=== PATIENT | female | born 1975 | race Caucasian/White ===

== ENCOUNTER 2017-08-29 12:40 | Emergency (ER) | payer BC ==
[2017-08-29] MEDS ORDERED: ASPIRIN 81 MG TABLET, CHEWABLE PO ONE (12:59)
--- NOTE | 2017-08-29 13:01 | ER Document Report ---
ED Medical Screen (RME) - General Chief Complaint: Chest Pain Stated Complaint: CHEST PAIN, ARM PAIN Time Seen by Provider: 08/29/17 12:58 Mode of Arrival: Ambulatory Information source: Patient TRAVEL OUTSIDE OF THE [place] IN LAST 30 DAYS: No - HPI Patient complains to provider of: cp Onset: This morning - pt. with onset of SSCP radiating to L arm easrliere this am. Has not taken ASA. - Related Data Allergies/Adverse Reactions: codeine Allergy (Verified 08/29/17 12:57) Past Medical History Renal/ Medical History: Denies: Hx Peritoneal Dialysis Physical Exam - Vital signs Vitals: Temp Pulse Resp BP Pulse Ox 97.8 F 98 18 116/81 98 08/29/17 12:47 08/29/17 12:47 08/29/17 12:47 08/29/17 12:47 08/29/17 12:47 Course - Vital Signs Vital signs: Temp Pulse Resp BP Pulse Ox 97.8 F 98 18 116/81 98 08/29/17 12:47 08/29/17 12:47 08/29/17 12:47 08/29/17 12:47 08/29/17 12:47
[2017-08-29] MEDS ORDERED: ONDANSETRON 4 MG TAB.RAPDIS PO ONE (13:17)
--- NOTE | 2017-08-29 14:01 | RADIOLOGY REPORT (SQ) ---
EXAM DESCRIPTION: CHEST PA/LAT COMPLETED DATE/TIME: 08/29/2017 1:54 pm REASON FOR STUDY: cp COMPARISON: None. EXAM PARAMETERS: NUMBER OF VIEWS: two views TECHNIQUE: Digital Frontal and Lateral radiographic views of the chest acquired. RADIATION DOSE: NA LIMITATIONS: none FINDINGS: LUNGS AND PLEURA: No opacities, masses or pneumothorax. No pleural effusion. MEDIASTINUM AND HILAR STRUCTURES: No masses or contour abnormalities. HEART AND VASCULAR STRUCTURES: Heart normal size. No evidence for failure. BONES: No acute findings. HARDWARE: None in the chest. OTHER: No other significant finding. IMPRESSION: NO SIGNIFICANT RADIOGRAPHIC FINDING IN THE CHEST. TECHNICAL DOCUMENTATION: JOB ID: [id number] [employer]- All Rights Reserved Reading location - IP/workstation name: [email or web address]
[2017-08-29 14:07] LABS: ABSOLUTE BASOPHILS # (AUTO) 0.1 10^3/uL (0.0-0.2); ABSOLUTE EOSINOPHILS # (AUTO) 0.2 10^3/uL (0.0-0.6); ABSOLUTE LYMPHOCYTES (AUTO) 2.5 10^3/uL (0.5-4.7); ABSOLUTE MONOCYTES (AUTO) 0.3 10^3/uL (0.1-1.4); ABSOLUTE NEUT (AUTO) 8.4 10^3/uL (1.7-8.2); BASOPHILS % (AUTO) 0.5 % (0-2); EOSINOPHILS % (AUTO) 1.5 % (0-6); HEMATOCRIT 40.5 % (36.0-47.0); HEMOGLOBIN 14.1 g/dL (12.0-15.5); LYMPHOCYTES % (AUTO) 21.7 % (13-45); MEAN CORPUSCULAR HEMOGLOBIN 32.3 pg (27.0-33.4); MEAN CORPUSCULAR HGB CONC 34.7 g/dL (32.0-36.0); MEAN CORPUSCULAR VOLUME 93 fl (80-97); MONOCYTES % (AUTO) 2.7 % (3-13); PLATELET COUNT 297 10^3/uL (150-450); RED BLOOD COUNT 4.35 10^6/uL (3.72-5.28); RED CELL DISTRIBUTION WIDTH 12.2 % (11.5-14.0); SEGMENTED NEUTROPHILS % (AUTO) 73.6 % (42-78); TOTAL CELLS COUNTED % (AUTO) 100 %; WHITE BLOOD COUNT 11.4 10^3/uL (4.0-10.5)
[2017-08-29] MEDS ORDERED: PROMETHAZINE HCL INJ 25 MG/1 ML VIAL IV ONE (14:13)
--- NOTE | 2017-08-29 14:17 | ER Document Report ---
ED Cardiac - General Chief Complaint: Chest Pain Stated Complaint: CHEST PAIN, ARM PAIN Time Seen by Provider: 08/29/17 12:58 Mode of Arrival: Ambulatory Information source: Patient Notes: 42-year-old female with past medical history of Elbert's disease who states for around 2 months she has had some runny nose, congestion, and has been treated on 2 different antibiotics for sinus infections. Patient is currently taking her second day of Levaquin. Patient recently flew here last evening to surprise her son who is graduating. She states this morning she felt some shortness of breath with some chest pressure radiating to her left shoulder. She states nausea and vomiting 1. She denies any diaphoresis, calf pain, leg swelling, increased pain with exertion, or history of chest pain. She states she has felt some palpitations. Patient denies smoking. She does state that she has a family history with mom having a stroke in her early 50s. Patient's discomfort started at 7 AM. TRAVEL OUTSIDE OF THE [place] IN LAST 30 DAYS: No - HPI Patient complains to provider of: Chest tightness Was the onset of pain: Gradual Is the pain a: New problem Chest pain location: Other - See above Quality of pain: Other - See above Chest pain radiation location: Left arm Severity now: None Severity at worst: Mild Pain level currently: Denies Cardiac risk factors: + Family history. denies: Smoker Associated symptoms: Other - See above Exacerbated by: Denies Relieved by: Nothing - Related Data Allergies/Adverse Reactions: codeine Allergy (Verified 08/29/17 12:57) Past Medical History - General Information source: Patient - Social History Smoking Status: Never Smoker Cigarette use (# per day): No Chew tobacco use (# tins/day): No Smoking Education Provided: No Frequency of alcohol use: None Family History: Reviewed & Not Pertinent Patient has suicidal ideation: No Patient has homicidal ideation: No Renal/ Medical History: Denies: Hx Peritoneal Dialysis Past Surgical History: Reports: Hx Orthopedic Surgery - Spinal Fusion Review of Systems - Review of Systems Constitutional: denies: Fever EENT: denies: Eye discharge, Nose discharge Cardiovascular: denies: Chest pain, Palpitations Respiratory: denies: Short of breath Gastrointestinal: denies: Vomiting Genitourinary: denies: Dysuria Musculoskeletal: denies: Leg swelling Skin: Other - no hives. denies: Rash Neurological/Psychological: Other - no slurred speech -: Yes All other systems reviewed and negative Physical Exam - Vital signs Vitals: Temp Pulse Resp BP Pulse Ox 97.8 F 98 18 116/81 98 08/29/17 12:47 08/29/17 12:47 08/29/17 12:47 08/29/17 12:47 08/29/17 12:47 Interpretation: Normal Notes: Reviewed vital signs and nursing note as charted by RN. CONSTITUTIONAL: Alert and oriented and responds appropriately to questions. Well -appearing; well-nourished HEAD: Normocephalic; atraumatic EYES: PERRL ENT: Normal nose; no rhinorrhea; moist mucous membranes; no facial swelling or erythema noted NECK: Supple without meningismus; non-tender; no cervical lymphadenopathy, no masses CARD: Regular rate and rhythm; no murmurs; excellent distal pulses to all 4 extremities RESP: Normal chest excursion without splinting or tachypnea; breath sounds clear and equal bilaterally ABD/GI: Normal bowel sounds; non-distended; soft, non-tender BACK: The back appears normal and is non-tender to palpation, there is no CVA tenderness EXT: Normal ROM in all joints; non-tender to palpation; no edema SKIN: No acute lesions noted NEURO: CN II through XII are intact. Moves all extremities equally; Motor and sensory function intact PSYCH: The patient's mood and manner are appropriate. Grooming and personal hygiene are appropriate. Course - Re-evaluation Re-evalutation: 08/29/17 14:16 Given the history and physical examination I will order cardiac panel, d-dimer, and x-ray of the chest. I will also add a thyroid panel. I believe dissection to be extremely unlikely. EKG shows a heart of 93, normal sinus rhythm, normal axis, no obvious ST elevation or depression, flattening T waves in leads III, and V3. Inverted T- wave in V2. 08/29/17 16:08 Labs as recorded, given the onset of pain at 7 AM, with a heart score less than 3, I do not believe a repeat troponin is necessary. TSH is recorded. Chest x-ray shows normal heart, normal mediastinum, no fractures, normal lung figueroa, no pneumothorax. Given the patient's request I have provided a stress dose of hydrocortisone. Chemistry is recorded. Patient will be discharged home with strict return precautions and follow-up as needed with the primary care physician. Patient will continue her antibiotics with strict return precautions. - Vital Signs Vital signs: Temp Pulse Resp BP Pulse Ox 97.8 F 98 18 116/81 98 08/29/17 12:47 08/29/17 12:47 08/29/17 12:47 08/29/17 12:47 08/29/17 12:47 - Laboratory Result Diagrams: 08/29/17 13:25 08/29/17 13:25 Laboratory results interpreted by me: 08/29/17 08/29/17 13:25 13:25 WBC 11.4 H Monocytes % 2.7 L Absolute Neutrophils 8.4 H Sodium 133.1 L Chloride 95 L AST 41 H ALT 66 H Discharge - Discharge Clinical Impression: Chest discomfort Condition: Good Disposition: HOME, SELF-CARE Additional Instructions: Come back immediately with any increased pain, return of pain, change in location or quality of pain, leg swelling, fevers, or any other acute problems. Please make sure that you follow-up with the primary care physician when you return home as we have discussed.
[2017-08-29 14:18] LABS: BLOOD UREA NITROGEN 13 mg/dL (7-20); CALCIUM 10.1 mg/dL (8.4-10.2); GLUCOSE 87 mg/dL (75-110)
[2017-08-29 14:19] LABS: ALANINE AMINOTRANSFERASE 66 U/L (9-52); ALBUMIN 4.9 g/dL (3.5-5.0); ALKALINE PHOSPHATASE 114 U/L (38-126); ANION GAP 12 (5-19); ASPARTATE AMINO TRANSFERASE 41 U/L (14-36); BILIRUBIN,DIRECT 0.2 mg/dL (0.0-0.4); BILIRUBIN,TOTAL 0.5 mg/dL (0.2-1.3); CARBON DIOXIDE 26 mmol/L (22-30); CHLORIDE 95 mmol/L (98-107); CREATINE KINASE 57 U/L (30-135); POTASSIUM 4.7 mmol/L (3.6-5.0); SODIUM 133.1 mmol/L (137-145); TOTAL PROTEIN 7.4 g/dL (6.3-8.2)
[2017-08-29 14:32] LABS: CREATINE KINASE MB 0.61 ng/mL (<4.55)
[2017-08-29 14:33] LABS: TROPONIN I < 0.012 ng/mL
[2017-08-29] MEDS ORDERED: PROMETHAZINE HCL 25 MG TABLET PO ONE (15:02)
[2017-08-29] MEDS ORDERED: HYDROCORTISONE SOD SUCCINATE INJ/PF 100 MG/2 ML SDV IV ONE (15:44)
[2017-08-29] MEDS ORDERED: NORMAL SALINE 1000 ML 1,000 ML IV ONE ×2 (15:44→17:49)
--- NOTE | 2017-08-29 17:19 | EKG REPORT ---
SEVERITY:- BORDERLINE ECG - SINUS RHYTHM BORDERLINE T ABNORMALITIES, ANTERIOR LEADS : Confirmed by: Doug Ponce MD 29-Aug-2017 17:18:41
[2017-08-29 18:52] VITALS: BP 104/65
== END 2017-08-29 18:51 | disposition home or self-care (01) ==
LOC: ER 12:40
DX: R07.89 Other chest pain (principal); J32.9 Chronic sinusitis, unspecified; R06.02 Shortness of breath; R11.2 Nausea with vomiting, unspecified; R00.2 Palpitations; Z82.3 Family history of stroke; Z88.5 Allergy status to narcotic agent
CPT/HCPCS: 93005; 99285; 96361; 96374; 36415; 82553; 82550; 84443; 85025; 80053; 84484; 85379; 71046; 93010; S0119; J1720; J7030